=== PATIENT | male | born 1980 | race Hispanic/Latino ===

== ENCOUNTER 2023-02-13 20:14 | Emergency (ER) | payer MEDICAID, OTHER ==
[~2023-02-13] VITALS: Ht 170.2 cm; Wt 81.2 kg
[2023-02-13 20:15] VITALS: BP 151/94; PULSE 75; RESP 18
[2023-02-13] MEDS ORDERED: SILV20CR11 TP (23:38)
[2023-02-13] MEDS ORDERED: IBUP-1493 PO (23:38)
[2023-02-13] MEDS ORDERED: SILVER SULFADIAZINE CREAM 50 GM TP ONE (23:55)
[2023-02-14] MEDS ORDERED: SILVER SULFADIAZINE CREAM 400 GM TP SCH
[2023-02-14] MEDS ORDERED: DIPH,PERTUSS(ACELL),TET VAC/PF 0.5 ML VIAL IM ONE
== END 2023-02-14 00:22 | disposition home or self-care (01) ==
LOC: EDH 20:14
DX: T22.212A Burn of second degree of left forearm, initial encounter (principal); X17.XXXA Contact with hot engines, machinery and tools, initial encounter; Y93.89 Activity, other specified; Y92.89 Other specified places as the place of occurrence of the external cause; Y99.8 Other external cause status
CPT/HCPCS: 16000; 90471; 90715